=== PATIENT | female | born 2000 | race Hispanic/Latino ===

== ENCOUNTER 2025-04-12 20:54 | Emergency (ER) | payer OTHER ==
[~2025-04-12] VITALS: Ht 154.9 cm; Wt 59.0 kg
[2025-04-12] MEDS ORDERED: AMOX1TAB16 PO (21:45)
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
[2025-04-12 22:20] VITALS: BP 110/65; PULSE 83; RESP 18; TEMP 98.4; O2SAT 98
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
== END 2025-04-12 22:20 | disposition home or self-care (01) ==
LOC: EDH 20:54
DX: S09.90XA Unspecified injury of head, initial encounter (principal); Y04.1XXA Assault by human bite, initial encounter; Y93.89 Activity, other specified; Y92.89 Other specified places as the place of occurrence of the external cause; Y99.8 Other external cause status
CPT/HCPCS: 70450; 99284